=== PATIENT | male | born 1970 | race Caucasian/White ===

== ENCOUNTER 2019-10-20 21:17 | Emergency (ER) | payer OTHER ==
[~2019-10-20] VITALS: Ht 185.4 cm; Wt 98.9 kg
[~2019-10-20 21:17] MED LIST: ALBU90OI INH; AMOX500 PO; Ciprodex Otic7.5 ML LEFTEAR; Cleocin HCl300 MG PO; DIVA500EC PO; DOXY100 PO; Ery-Tab250 MG PO; HYDACE5 PO; MARIJUANA CARD; NAPR500; NAPR500 PO; NAPR550 PO; PROCODE120 PO; Percocet 5-3251 EACH PO; RXHYDACE PO; TAMS.4ER PO; TRAM50 PO
[2019-10-20 21:52] LABS: BASOPHILS ABSOLUTE AUTO 0.05 K/mm3 (0.00-0.23); BASOPHILS PERCENT AUTO 0 % (0-2); EOSINOPHILS ABSOLUTE AUTO 0.03 K/mm3 (0.00-0.68); EOSINOPHILS PERCENT AUTO 0 % (0-6); Hematocrit 48.3 % (37.0-53.0); Hemoglobin 15.9 g/dL (13.5-17.5); IMMATURE GRAN ABSOLUTE AUTO 0.04 K/mm3 (0.00-0.10); IMMATURE GRAN PERCENT AUTO 0 % (0-1); LYMPHOCYTES ABSOLUTE AUTO 1.79 K/mm3 (0.84-5.20); LYMPHOCYTES PERCENT AUTO 14 % (21-46); MONOCYTES ABSOLUTE AUTO 1.34 K/mm3 (0.16-1.47); MONOCYTES PERCENT AUTO 10 % (4-13); Mean Corpuscular HGB 29.2 pg (26.0-34.0); Mean Corpuscular HGB Conc 32.9 g/dL (31.5-36.5); Mean Corpuscular Volume 89 fL (80-100); Mean Platelet Volume 11.7 fL (9.1-12.4); NEUTROPHILS ABSOLUTE AUTO 9.67 K/mm3 (1.96-9.15); NEUTROPHILS PERCENT AUTO 75 % (41-73); Platelet Count 181 K/mm3 (150-400); RDW Coefficient Variation 13.9 % (11.7-14.2); Red Blood Cell Count 5.45 M/mm3 (4.30-5.90); White Blood Cell Count 12.92 K/mm3 (4.00-11.30)
[2019-10-20 22:14] LABS: Alanine Aminotransfer (ALT/SGP 31 U/L (12-78); Alk Phos 79 U/L (50-136); Anion Gap 5 mmol/L (6-16); Aspartate Aminotrans (AST/SGOT 28 U/L (12-37); Bilirubin, Total 0.7 mg/dL (0.1-1.0); Blood Urea Nitrogen 16 mg/dL (8-24); Bun/Creatinine Ratio 14.7 (12.0-20.0); CO2, Blood 25 mmol/L (21-32); Calcium, Blood 9.2 mg/dL (8.5-10.1); Chloride, Blood 110 mmol/L (98-108); Creatinine, Blood 1.09 mg/dL (0.60-1.20); Glomerular Filtration Rate >60 (60-); Glucose, Blood 119 mg/dL (70-99); Potassium, Blood 3.9 mmol/L (3.5-5.5); Sodium, Blood 140 mmol/L (136-145); Troponin I <0.015 ng/mL (0.000-0.040)
[2019-10-20 23:23] LABS: Source, Urine Clean Catch
[2019-10-20 23:32] LABS: Bilirubin, Urine Neg (Neg); Blood, Urine 3+ (Neg); Glucose Qualitative, Urine Neg (Neg); Ketones, Urine Neg (Neg); Leukocyte Esterase, Urine 1+ (Neg); Nitrite, Urine Neg (Neg); Protein, Urine 3+ (Neg); Urobilinogen, Urine 1+ (Normal)
[2019-10-20 23:34] LABS: Appearance, Urine Clear (Clear); Color, Urine Yellow (P-Yellow)
[2019-10-20 23:38] LABS: Amorphous Light (0-Heavy); Bacteria Few /hpf; Mucus Light (0-Heavy); Red Blood Cells, Urine 0-2 /hpf (0-2); Squamous Epithelial Cells Not Seen /hpf (Few)
[2019-10-21] MEDS ORDERED: Zofran4 MG PO (02:38)
== END 2019-10-21 02:55 | disposition home or self-care (01) ==
LOC: ER 21:17
PROVIDERS: Physician Assistant
DX: K62.89 Other specified diseases of anus and rectum (principal); R07.89 Other chest pain; R11.2 Nausea with vomiting, unspecified; F17.210 Nicotine dependence, cigarettes, uncomplicated
CPT/HCPCS: 36415; 71046; 74176; 80053; 81001; 83690; 84484; 85025; 87086; 93005; 93010; 99284-25

== ENCOUNTER 2019-12-15 14:34 | Emergency (ER) | payer OTHER ==
[~2019-12-15] VITALS: Ht 188 cm; Wt 99.8 kg
[~2019-12-15 14:34] MED LIST changes: +Zofran4 MG PO
[2019-12-15 15:10] LABS: BASOPHILS ABSOLUTE AUTO 0.05 K/mm3 (0.00-0.23); BASOPHILS PERCENT AUTO 1 % (0-2); EOSINOPHILS ABSOLUTE AUTO 0.01 K/mm3 (0.00-0.68); EOSINOPHILS PERCENT AUTO 0 % (0-6); IMMATURE GRAN ABSOLUTE AUTO 0.02 K/mm3 (0.00-0.10); IMMATURE GRAN PERCENT AUTO 0 % (0-1); LYMPHOCYTES ABSOLUTE AUTO 2.19 K/mm3 (0.84-5.20); LYMPHOCYTES PERCENT AUTO 21 % (21-46); MONOCYTES ABSOLUTE AUTO 0.79 K/mm3 (0.16-1.47); MONOCYTES PERCENT AUTO 7 % (4-13); Mean Corpuscular HGB 29.4 pg (26.0-34.0); Mean Corpuscular HGB Conc 33.3 g/dL (31.5-36.5); Mean Corpuscular Volume 88 fL (80-100); Mean Platelet Volume 11.2 fL (9.1-12.4); NEUTROPHILS ABSOLUTE AUTO 7.61 K/mm3 (1.96-9.15); NEUTROPHILS PERCENT AUTO 71 % (41-73); Platelet Count 173 K/mm3 (150-400); RDW Standard Deviation 44.4 fL (35.1-46.3); Red Blood Cell Count 5.45 M/mm3 (4.30-5.90); White Blood Cell Count 10.67 K/mm3 (4.00-11.30)
[2019-12-15 15:33] LABS: Alanine Aminotransfer (ALT/SGP 39 U/L (12-78); Albumin, Blood 4.3 g/dL (3.4-5.0); Albumin/Globulin Ratio 1.1 (0.8-1.8); Alk Phos 71 U/L (50-136); Anion Gap 5 mmol/L (6-16); Aspartate Aminotrans (AST/SGOT 47 U/L (12-37); Bilirubin, Total 0.9 mg/dL (0.1-1.0); Blood Urea Nitrogen 17 mg/dL (8-24); Bun/Creatinine Ratio 17.4 (12.0-20.0); CO2, Blood 22 mmol/L (21-32); Calcium, Blood 9.1 mg/dL (8.5-10.1); Chloride, Blood 111 mmol/L (98-108); Creatinine, Blood 0.98 mg/dL (0.60-1.20); Globulin, Blood 3.8 g/dL (2.2-4.0); Glomerular Filtration Rate >60 (60-); Glucose, Blood 109 mg/dL (70-99); Potassium, Blood 3.7 mmol/L (3.5-5.5); Sodium, Blood 138 mmol/L (136-145); Total Protein, Blood 8.1 g/dL (6.4-8.2)
== END 2019-12-15 16:05 | disposition home or self-care (01) ==
LOC: ER 14:34
PROVIDERS: Physician Assistant
DX: R10.9 Unspecified abdominal pain (principal); G89.29 Other chronic pain; F17.210 Nicotine dependence, cigarettes, uncomplicated
CPT/HCPCS: 36415; 80053; 83690; 85025; 99284

== ENCOUNTER → 2023-09-17 | Outpatient (CLI) | payer OTHER ==
[~2023-09-17] MED LIST changes: +ADVIL200 MG PO; +MELO7.5 PO; +OMEP20ER PO
== END ==
LOC: LAB SHORT 14:50
DX: H92.12 Otorrhea, left ear (principal)
CPT/HCPCS: 87070; 87205

== ENCOUNTER 2023-09-19 17:33 | Inpatient (IN) | payer OTHER ==
[~2023-09-19] VITALS: Ht 157.5 cm; Wt 100.1 kg
[2023-09-19 18:35] LABS: Mean Corpuscular HGB 39.7 pg (26.0-34.0); Mean Corpuscular HGB Conc 33.3 g/dL (31.5-36.5); Mean Corpuscular Volume 119 fL (80-100); Mean Platelet Volume 10.2 fL (9.1-12.4); RDW Coefficient Variation 18.4 % (11.7-14.2); RDW Standard Deviation 82.2 fL (35.1-46.3); Red Blood Cell Count 1.21 M/mm3 (4.30-5.90); White Blood Cell Count 1.89 K/mm3 (4.00-11.30)
[2023-09-19 18:37] LABS: Hematocrit 14.4 % (37.0-53.0); Hemoglobin 4.8 g/dL (13.5-17.5); Platelet Count 27 K/mm3 (150-400)
[2023-09-19 18:46] LABS: Percent Saturation 47.5 % (20.0-50.0)
[2023-09-19 19:08] LABS: BASOPHILS PERCENT MAN 0 % (0-2); EOSINOPHILS PERCENT MAN 0 % (0-6); LYMPHOCYTES % ATYPICAL MANUAL 3 % (0-0); LYMPHOCYTES ABSOLUTE MAN 1.73 K/mm3 (0.84-5.20); LYMPHOCYTES PERCENT MAN 89 % (21-46); MONOCYTES ABSOLUTE MAN 0.07 K/mm3 (0.16-1.47); MONOCYTES PERCENT MAN 4 % (4-13); NEUTROPHILS ABSOLUTE MAN 0.07 K/mm3 (1.96-9.15); SEG NEUTROPHILS PERCENT MAN 4 % (41-73); TOTAL CELLS COUNTED 100
[2023-09-19 19:44] LABS: IMMATURE RETIC FRACTION 16.4 % (2.3-16.0); RETIC HGB EQUIVALENT 41.4 pg (28.20-36.60); RETICULOCYTE ABSOLUTE 0.0378 M/mm3 (0.0200-0.1100); RETICULOCYTE COUNT PERCENT 3.12 % (0.50-2.50)
[2023-09-19 20:10] LABS: International Normalized Ratio 1.17; Prothrombin Time Results 12.2 Sec (9.7-11.5)
[2023-09-19 21:17] VITALS: BP 119/71
[2023-09-19 22:21] VITALS: BP 132/81
[2023-09-19 23:03] VITALS: BP 118/69
[2023-09-19 23:05] VITALS: BP 118/69
[2023-09-20] VITALS (18 sets, daily range): BP systolic 110–137; BP diastolic 7–86
--- NOTE | 2023-09-20 04:23 | NUR ---
SHIFT SUMMARY DELMA ARRIVED FROM THE ED AROUND 2114. HE WAS ALERT AND FULLY ORIENTED, AND ABLE TO XFER INDEPENDENTLY. PT ARRIVED ON 2L VIA NC, AND WAS TRANSFUSING UNIT 1 OF 2 RBCS. PT TOLERATED TRANSFUSIONS, BUT HAS HAD A FLUCTUATING LOW GRADE FEVER SINCE ARRIVAL TO ED. DR BUCIO CONTACTED ABOUT INCREASING TEMPERATURE DURING ADMINISTRATION OF UNIT 2. BENADRYL AND TYLENOL ORDERED AND ADMINISTERED, UNIT COMPLETED WITHOUT FURTHER ISSUE. PT ADMIT COMPLETE, HE IS HERE ORIGINALLY FOR A SWOLLEN EYE AFTER PICKING AT "A PIMPLE" ABOVE HIS EYEBROW. PT DISCOVERED TO HAVE PANCYTOPENIA. PT RESTING IN BED AT THIS TIME WITH CALL LIGHT IN REACH, AND SON IN ROOM.
[2023-09-20 04:43] LABS: BASOPHILS PERCENT AUTO 0 % (0-2); EOSINOPHILS PERCENT AUTO 0 % (0-6); Mean Corpuscular HGB 36.7 pg (26.0-34.0); Mean Corpuscular HGB Conc 33.5 g/dL (31.5-36.5); Mean Platelet Volume 13.1 fL (9.1-12.4); RDW Coefficient Variation 25.2 % (11.7-14.2); RDW Standard Deviation 93.3 fL (35.1-46.3); White Blood Cell Count 1.43 K/mm3 (4.00-11.30)
[2023-09-20 04:50] LABS: IMMATURE GRAN PERCENT AUTO 0 % (0-1); LYMPHOCYTES ABSOLUTE AUTO 1.11 K/mm3 (0.84-5.20); LYMPHOCYTES PERCENT AUTO 78 % (21-46); MONOCYTES ABSOLUTE AUTO 0.22 K/mm3 (0.16-1.47); MONOCYTES PERCENT AUTO 15 % (4-13); Mean Corpuscular Volume 109 fL (80-100); NEUTROPHILS PERCENT AUTO 7 % (41-73)
[2023-09-20 04:52] LABS: Hematocrit 16.4 % (37.0-53.0); Hemoglobin 5.5 g/dL (13.5-17.5); Platelet Count 19 K/mm3 (150-400)
[2023-09-20 05:06] LABS: Albumin/Globulin Ratio 0.9 (0.8-1.8); Bilirubin, Total 1.1 mg/dL (0.1-1.0); Bun/Creatinine Ratio 17.9 (12.0-20.0); Calcium, Blood 8.1 mg/dL (8.5-10.1); Creatinine, Blood 1.06 mg/dL (0.60-1.20); Globulin, Blood 3.2 g/dL (2.2-4.0); Total Protein, Blood 6.2 g/dL (6.4-8.2)
[2023-09-20 09:44] LABS: U Amphetamine Screen Not Detected; U Barbituate Screen Not Detected; U Benzodiazapine Screen Not Detected; U Buprenorphine Screen Not Detected; U Cannabinoids Screen DETECTED; U Cocaine Screen Not Detected; U Methadone Screen Not Detected; U Methamphetamine Screen Not Detected; U Opiates Screen Not Detected; U Oxycodone Screen Not Detected; U Phencyclidine Screen Not Detected
[2023-09-20 16:36] LABS: Hematocrit 18.7 % (37.0-53.0); Hemoglobin 6.3 g/dL (13.5-17.5)
--- NOTE | 2023-09-20 18:03 | NUR ---
SHIFT SUMMARY PT A&OX4, VSS, AMB IND, TOLERATING PO, VOIDING, AND DENIED PAIN. HGB NOW 6.3 AFTER BLOOD TRANSFUSION THIS AM. PER , ORDER FOR ADDITIONAL RBC UNIT TO BE ADMINISTERED. CALL LIGHT WITHIN REACH AND PT ABLE TO MAKE NEEDS KNOWN.
[2023-09-21] VITALS (9 sets, daily range): BP systolic 103–140; BP diastolic 68–82
[2023-09-21 02:06] LABS: Bun/Creatinine Ratio 17.1 (12.0-20.0); Calcium, Blood 8.1 mg/dL (8.5-10.1); Creatinine, Blood 0.99 mg/dL (0.60-1.20); Potassium, Blood 3.7 mmol/L (3.5-5.5)
[2023-09-21 02:19] LABS: BASOPHILS PERCENT AUTO 0 % (0-2); EOSINOPHILS PERCENT AUTO 0 % (0-6); Hematocrit 19.8 % (37.0-53.0); Hemoglobin 6.9 g/dL (13.5-17.5); Mean Corpuscular HGB 36.1 pg (26.0-34.0); Mean Corpuscular HGB Conc 34.8 g/dL (31.5-36.5); Mean Platelet Volume 10.8 fL (9.1-12.4); RDW Coefficient Variation 24.2 % (11.7-14.2); RDW Standard Deviation 86.2 fL (35.1-46.3); Red Blood Cell Count 1.91 M/mm3 (4.30-5.90); White Blood Cell Count 1.53 K/mm3 (4.00-11.30)
[2023-09-21 02:27] LABS: Mean Corpuscular Volume 104 fL (80-100)
[2023-09-21 02:28] LABS: IMMATURE GRAN PERCENT AUTO 0 % (0-1); LYMPHOCYTES ABSOLUTE AUTO 1.23 K/mm3 (0.84-5.20); LYMPHOCYTES PERCENT AUTO 80 % (21-46); MONOCYTES ABSOLUTE AUTO 0.19 K/mm3 (0.16-1.47); MONOCYTES PERCENT AUTO 12 % (4-13); NEUTROPHILS ABSOLUTE AUTO 0.11 K/mm3 (1.96-9.15); NEUTROPHILS PERCENT AUTO 7 % (41-73); Platelet Count 19 K/mm3 (150-400)
--- NOTE | 2023-09-21 04:29 | NUR ---
SHIFT SUMMARY DELMA WAS ALERT AND FULLY ORIENTED TONIGHT ON ASSESMENT. HGB STILL LOW, ONE UNIT TRANSFUSED AT START OF SHIFT SUBSEQUENT LAB DRAW 6.9, PLT STILL 19. HOSPITALIST NOTIFIED OF CRITICAL PLT VALUE AND LOW HGB, SECOND UNIT TONIGHT INFUSING NOW. NO COMPLICATIONS YET, WILL CONTINUE TO MONITOR TRANSFUSION. NO ACUTE EVENTS TONIGHT NO NOTED CHANGES TO CONDITION. PT RESTING IN BED AT LOW POSITION WITH CALL LIGHT IN REACH AND FAMILY AT BEDSIDE. IV TO R WRIST D/C D/T INFILTRATION.
[2023-09-21 10:46] LABS: Hematocrit 22.6 % (37.0-53.0); Hemoglobin 7.8 g/dL (13.5-17.5)
--- NOTE | 2023-09-21 13:38 | NUR ---
STATED ALLERGY PT STATED HE DEVELOPED A RASH ALL OVER HIS BODY FROM CEPHALEXEN. CARE ON GOING.
--- NOTE | 2023-09-21 15:45 | NUR ---
NOTE PT ALERT. WALKING FREQUENLTY AROUND THE FLOOR WITH MASK ON. HE IS BASELINE, A VERY ACTIVE MAN. LEFT FA IV INFILTRATED. NEW IV STARTED RIGH AC. TOLERATING ANTIBIOTIC WELL. NO RASH NOTED. FAMILY AT BEDSIDE. PT HAS CHRONIC PAIN BUT HAS DECLINED ORAL PAIN MEDICATIONS HE PREFERS TO WALK. RA. LARGE AMOUNT OF FAMILY IN AND OUT. THEY ARE COOPERATIVE WITH NEUTROPENIC PRECAUTIONS. PT HAS AN EXCELLENT APPETITE. CARE ONGOING.
[2023-09-21 18:40] LABS: Bilirubin, Direct 0.3 mg/dL (0.0-0.3); Bilirubin, Indirect 0.7 mg/dL (0.1-0.7)
--- NOTE | 2023-09-21 19:15 | NUR ---
RECEIVED REPORT FROM SHANNA RN. PT SITTING ON SIDE OF BED ROCKING WHICH APPEARS TO BE PT'S BASELINE. FAMILY AT BEDSIDE. NO NEEDS AT THIS TIME. WILL CONTINUE TO PROVIDE CARE T/O SHIFT. CALL LT IN REACH.
--- NOTE | 2023-09-21 22:30 | NUR ---
PT STATES HE'S GOING TO TAKE A WALK AROUND THE FLOOR. NO NEEDS AT THIS TIME. CALL LT IN REACH.
--- NOTE | 2023-09-22 00:20 | NUR ---
PT UP IN ROOM WALKING AROUND. ABX INFUSING. CALL LT IN REACH.
--- NOTE | 2023-09-22 01:00 | NUR ---
SALINE LOCKED PT. PT RESTING QUIETLY. LIGHTS TURNED OFF PER PT REQUEST. NO OTHER NEEDS. CALL LT IN REACH.
--- NOTE | 2023-09-22 04:16 | NUR ---
PT RESTING QUIETLY. CALL LT IN REACH.
[2023-09-22 04:20] VITALS: BP 138/79
[2023-09-22 07:09] LABS: HAPTOGLOBIN 111 mg/dL (30-200)
[2023-09-22 07:33] LABS: Hematocrit 23.8 % (37.0-53.0); Mean Corpuscular HGB 34.6 pg (26.0-34.0); Mean Corpuscular HGB Conc 33.6 g/dL (31.5-36.5); Mean Corpuscular Volume 103 fL (80-100); RDW Coefficient Variation 22.6 % (11.7-14.2); RDW Standard Deviation 79.7 fL (35.1-46.3); Red Blood Cell Count 2.31 M/mm3 (4.30-5.90); White Blood Cell Count 1.44 K/mm3 (4.00-11.30)
[2023-09-22 07:37] LABS: Platelet Count 20 K/mm3 (150-400)
[2023-09-22 07:53] LABS: Albumin, Blood 3.1 g/dL (3.4-5.0); Albumin/Globulin Ratio 0.8 (0.8-1.8); Bilirubin, Total 0.9 mg/dL (0.1-1.0); Bun/Creatinine Ratio 17.8 (12.0-20.0); Calcium, Blood 8.5 mg/dL (8.5-10.1); Creatinine, Blood 0.95 mg/dL (0.60-1.20); Globulin, Blood 3.8 g/dL (2.2-4.0); Potassium, Blood 4.1 mmol/L (3.5-5.5); Total Protein, Blood 6.9 g/dL (6.4-8.2)
[2023-09-22 08:18] LABS: BAND PERCENT MAN 2 % (0-8); BASOPHILS PERCENT MAN 0 % (0-2); EOSINOPHILS PERCENT MAN 0 % (0-6); LYMPHOCYTES % ATYPICAL MANUAL 2 % (0-0); LYMPHOCYTES ABSOLUTE MAN 1.23 K/mm3 (0.84-5.20); LYMPHOCYTES PERCENT MAN 84 % (21-46); METAMYELOCYTE ABSOLUTE MAN 0.02 K/mm3 (0.00-0.00); METAMYELOCYTE PERCENT MAN 2 % (0-0); MONOCYTES ABSOLUTE MAN 0.08 K/mm3 (0.16-1.47); MONOCYTES PERCENT MAN 6 % (4-13); NEUTROPHILS ABSOLUTE MAN 0.08 K/mm3 (1.96-9.15); SEG NEUTROPHILS PERCENT MAN 4 % (41-73); TOTAL CELLS COUNTED 50
--- NOTE | 2023-09-22 09:12 | NUR ---
BONE MARROW TAP DR BRANNON AT BEDSIDE. PT CONSENTED. PT MEDCIATED WITH ATIVAN 2MG X1 IV. JOSE RN WAS AT BEDSIDE FOR PROCEDURAL ASSIST AND MEDCIATIONS. PATHOLOGY FROM LAB HERE FOR SAMPLES. PT AWAKE AND TALKING THROUGH OUT. BAND AIDE PLACED OVER RIGHT HIP SAMPLE SITE. PT HEMATOMA OR BLEEDING NOTED. PT STATED THAT IT WASN'T BAD HE THOUGHT. PT ABLE TO GET UP AND EAT IMMEDIATELY AFTER DRESSING PLACED. VSS. CARE ONGOING.
[2023-09-22 10:22] LABS: HIV 1,2 COMBO ANTIGEN/ANTIBODY Negative (Negative)
[2023-09-22 17:40] LABS: ANTI-NUCLEAR AB ANA,IGG ELISA None Detected (None Detected)
--- NOTE | 2023-09-22 17:43 | NUR ---
NOTE PT ALERT, COOPERATIVE. S/P BONE MARROW TAP. RIGHT HIP SITE CD&I. UP AD RITA. DENIED DISCOMFORT AT SITE. POT AMBULATING OUTSIDE FOR SOME AIR. PT DEMANDED THAT THIS NURSE CALL DOWN TO THE [place] AND TELL THEM THAT PT CAN EAT DOWNSTAIRS IN THE [place]. THIS NURSE CALLED AND LEFT A MESSAGE. RETURN CALL FROM [employer] RECIVED. THEY CONFIRMED THAT THEY ARE UNABLE TO SERVE ACTIVE PATIENTS. RELAYED THE MESSAGE TO PT . SHE BECAME BALLIGERENT. TOLD PT THAT HE IS MORE THAN WELCOME TO KEEP THEM COMPANY IN THE [place] BUT STAFF WILL NOT SERVE HIM. HE WAS OK. WAS ANGRY. CARE ONGOING.
[2023-09-22 20:10] VITALS: BP 142/87
--- NOTE | 2023-09-23 01:07 | NUR ---
SHIFT SUMMARY PT A&O X 4, UP AND AMBULATING IN ROOM WITHOUT ASSISTANCE. PT HAD SON AND HIS GIRLFRIEND AT BEDSIDE MOST OF THE NIGHT. THEY FREQUENTLY LEFT THE ROOM TOGETHER AND WOULD RETURN TOGETHER AFTER 30-45 MINUTES OUTSIDE. PT REPORTED CHRONIC PAIN IN BACK WELL NEW PAIN TO R HIP AREA WHERE BONE MARROW TAP WAS DONE, MEDICATED PER EMAR WITH OXY WITH GOOD RELIEF. PT ORBITAL AREA REMAINED UNCHANGED THROUGH THE SHIFT. NO ACUTE CHANGES THIS SHIFT. PT ROOM HAS FOUL STRONG ODOR OF AMMONIA/CAT URINE BUT PT DOES NOT NOTICE IT. 09/23/23 KARSON LEON RN
[2023-09-23 04:22] VITALS: BP 115/72
[2023-09-23 06:59] LABS: BASOPHILS PERCENT AUTO 0 % (0-2); EOSINOPHILS PERCENT AUTO 0 % (0-6); Hemoglobin 8.4 g/dL (13.5-17.5); Mean Corpuscular HGB 35.6 pg (26.0-34.0); Mean Corpuscular Volume 102 fL (80-100); Mean Platelet Volume 11.3 fL (9.1-12.4); RDW Coefficient Variation 21.1 % (11.7-14.2); RDW Standard Deviation 75.7 fL (35.1-46.3); Red Blood Cell Count 2.36 M/mm3 (4.30-5.90); White Blood Cell Count 1.88 K/mm3 (4.00-11.30)
[2023-09-23 07:17] LABS: IMMATURE GRAN PERCENT AUTO 0 % (0-1); LYMPHOCYTES ABSOLUTE AUTO 1.59 K/mm3 (0.84-5.20); LYMPHOCYTES PERCENT AUTO 85 % (21-46); MONOCYTES ABSOLUTE AUTO 0.18 K/mm3 (0.16-1.47); MONOCYTES PERCENT AUTO 10 % (4-13); NEUTROPHILS ABSOLUTE AUTO 0.11 K/mm3 (1.96-9.15); NEUTROPHILS PERCENT AUTO 6 % (41-73); Platelet Count 23 K/mm3 (150-400)
[2023-09-23 08:05] VITALS: BP 137/84
--- NOTE | 2023-09-23 18:02 | NUR ---
SUMMARY- PT A/O X4, INDEPENDANT IN ROOM. CONT TO RECEIVE IV ABX FOR PERIORBITAL CELLULITIS. AREA IS LIGHT PURPLE, NO HEAT. DOES NOT COMPLAIN OF ANY PAIN. TOLERATING FOOD ANF FLUIDS. FREQ TAKES WALKS OUT OF ROOM. FAMILY STAYING IN THE ROOM, RN ASKED ALL ADULT CHILDREN GO HOME FOR THE [place] THAT IS OUR VISITOR POLICY. WILL REPORT TO SALVATORE RN
[2023-09-23 20:22] VITALS: BP 140/85
[2023-09-24 03:03] VITALS: BP 143/91
--- NOTE | 2023-09-24 04:50 | NUR ---
PT IS ALERT AND ORIENTED. PT IS CALM AND COOPERATIVE WITH CARE. PT IS INDEPENDENT IN THE ROOM. PT CALLS APPROPRIATELY. FAMILY IN THE ROOM OVERNIGHT. PT REPORTS PAIN ON ONE OCCASION, GAVE PRN TYLENOL AND OXYCODONE. PT DENIES NAUSEA, VOMITING, AND SOB. NO ACUTE CHANGES OR COMPLICATIONS. POSSIBLE DC TODAY. BED IN LOW POSITION, CALL LIGHT WITHIN REACH. WILL REPORT TO DAY NURSE.
[2023-09-24 06:09] LABS: Hematocrit 24.5 % (37.0-53.0); Hemoglobin 8.3 g/dL (13.5-17.5); Mean Corpuscular HGB 34.9 pg (26.0-34.0); Mean Corpuscular HGB Conc 33.9 g/dL (31.5-36.5); Mean Corpuscular Volume 103 fL (80-100); Mean Platelet Volume 11.6 fL (9.1-12.4); RDW Standard Deviation 72.8 fL (35.1-46.3); Red Blood Cell Count 2.38 M/mm3 (4.30-5.90); White Blood Cell Count 1.76 K/mm3 (4.00-11.30)
[2023-09-24 06:13] LABS: Platelet Count 23 K/mm3 (150-400)
[2023-09-24 06:32] LABS: BASOPHILS PERCENT MAN 0 % (0-2); EOSINOPHILS PERCENT MAN 0 % (0-6); LYMPHOCYTES ABSOLUTE MAN 1.65 K/mm3 (0.84-5.20); LYMPHOCYTES PERCENT MAN 94 % (21-46); MONOCYTES ABSOLUTE MAN 0.07 K/mm3 (0.16-1.47); MONOCYTES PERCENT MAN 4 % (4-13); NEUTROPHILS ABSOLUTE MAN 0.03 K/mm3 (1.96-9.15); SEG NEUTROPHILS PERCENT MAN 2 % (41-73); TOTAL CELLS COUNTED 50
[2023-09-24 07:44] VITALS: BP 136/66
--- NOTE | 2023-09-24 13:42 | NUR ---
PATIENT AMBULATED OUT OF ROOM WITH HIS SON, WEARING MASK, WAS GONE FOR ABOUT 25 MINUTES. THEY RETURNED WITH BAGS OF POTATO CHIPS AND SODA. WHEN HE CAME BACK, THIS AUTHOR EDUCATED HIM ABOUT NOT LEAVING THE UNIT, LET ALONE LEAVING THE PROPERTY TO GET SNACKS. HE VERBALIZED THAT HE HAD NOT BEEN TOLD THAT PREVIOUSLY. EXPLAINED TO HIM THAT HE IS AN INPATIENT AND HE IS OUR RESPONSIBILITY UNTIL HE IS DISCHARGED. HE VERBALIZED UNDERSTANDING OF THIS EDUCATION.
[2023-09-24 15:38] VITALS: BP 124/96
--- NOTE | 2023-09-24 16:48 | NUR ---
SHIFT SUMMARY: NO ACUTE EVENTS. C/O 6/10 CHRONIC BACK PAIN; TYLENOL GIVEN OXYCODONE IS ONLY ORDERED ONCE PER DAY AND HE PREFERS TO TAKE IT BEFORE BED. HEATING PAD SET UP. R EYE CELLULITIS APPEARS RESOLVED. SPOKE TO WHO STATED THAT PT WAS DIAGNOSED WITH AN EAR INFECTION AND IS SUPPOSED TO HAVE SURGERY IN [place]TH[place] (NOT SCHEDULED YET). SHE MAY BRING IN HIS HOME RX FOR EAR DROPS TOMORROW. AMBULATING INDEPENDENTLY, WAS EDUCATED NOT TO LEAVE THE UNIT BUT CONTINUES TO DO SO. ON ROOM AIR.
--- NOTE | 2023-09-24 18:35 | NUR ---
DR. BRANNON SAW PATIENT. DUE TO NEW DIAGNOSIS OF AML, HE WOULD LIKE PATIENT TRANSFERRED TO [facility] FOR INDUCTION CHEMOTHERAPY.
[2023-09-24 20:14] VITALS: BP 123/75
[2023-09-25 03:11] VITALS: BP 118/70
--- NOTE | 2023-09-25 05:38 | NUR ---
SHIFT SUMMARY NOC PT A/O X 4. PLEASANT AND COOPERATIVE WITH CARE. ON NEUTROPENIC PRECAUTIONS WITH NEWLY DX OF LEUKEMIA. AT AROUND 0315 KEYSEATER OPERATOR NOTIFIED RN THAT PT L EYE WAS BADLY SWOLLEN. L EYE COMPLETELY SHUT AND PT HAS MILD C/O OF PAIN, BUT MOSTLY IRRITATION. PT HAD CELLULITIS IN R EYE LAST WEEK UPON ADMIT AND L EYE LOOKS IDENTICAL TO WHAT THAT LOOKED LIKE. HOSPITALIST NOTIFIED AND INSTRUCTIONS GIVEN TO PASS ALONG TO DAY RN TO PASS ALONG TO ROUNDING MD. ICE PACK AND TYENOL GIVEN. PT IS WAITING ON BED TO OPEN UP AT [facility] FOR [facility] TRANSFER TO BEGIN INDUCTION CHEMOTHERAPY FOR NEW DX. PT IS CURRENTLY RESTING WITH BED IN LOWEST POSITION, AND CALL LIGHT WITHIN REACH.
[2023-09-25 05:40] LABS: BASOPHILS PERCENT AUTO 0 % (0-2); EOSINOPHILS PERCENT AUTO 0 % (0-6); Hematocrit 23.5 % (37.0-53.0); Hemoglobin 8.2 g/dL (13.5-17.5); Mean Corpuscular HGB 35.3 pg (26.0-34.0); Mean Corpuscular HGB Conc 34.9 g/dL (31.5-36.5); Mean Corpuscular Volume 101 fL (80-100); Mean Platelet Volume 11.2 fL (9.1-12.4); RDW Coefficient Variation 19.4 % (11.7-14.2); RDW Standard Deviation 69.2 fL (35.1-46.3); Red Blood Cell Count 2.32 M/mm3 (4.30-5.90); White Blood Cell Count 1.26 K/mm3 (4.00-11.30)
[2023-09-25 05:48] LABS: IMMATURE GRAN PERCENT AUTO 0 % (0-1); LYMPHOCYTES ABSOLUTE AUTO 1.02 K/mm3 (0.84-5.20); LYMPHOCYTES PERCENT AUTO 81 % (21-46); MONOCYTES ABSOLUTE AUTO 0.13 K/mm3 (0.16-1.47); MONOCYTES PERCENT AUTO 10 % (4-13); NEUTROPHILS ABSOLUTE AUTO 0.11 K/mm3 (1.96-9.15); NEUTROPHILS PERCENT AUTO 9 % (41-73)
[2023-09-25 05:49] LABS: Platelet Count 25 K/mm3 (150-400)
[2023-09-25 07:48] VITALS: BP 113/82
--- NOTE | 2023-09-25 08:04 | NUR ---
CALL TO [facility], THEY ARE ON [place] AND DO NOT EXPECT BEDS FOR UP TO A WEEK
[2023-09-25 15:02] VITALS: BP 107/83
--- NOTE | 2023-09-25 19:44 | NUR ---
SHIFT SUMMARY: NO ACUTE EVENTS. L EYE REMAINS SWOLLEN AND RED. LESIONS ON POSTERIOR NECK ARE UNCHANGED. C/O CHRONIC BACK PAIN, HEATING PAD IS HELPING. AMBULATING INDEPENDENTLY, STILL GOING OFF UNIT PERIODICALLY. APPETITE IS GOOD. SPENT TIME THIS EVENING EDUCATING HIM ABOUT WHAT TO EXPECT WHEN RECEIVING CHEMO (CENTRAL LINE PLACEMENT, POSSIBLE SIDE EFFECTS DEPENDING ON REGIMEN). DID NOT BRING EAR DROPS FROM HOME.
--- NOTE | 2023-09-26 01:43 | NUR ---
PATIENT COMPLAINT OF INSOMNIA DESPITE TRAZODONE GIVEN PER EMAR AT BEDTIME. HOSPITALIST CONTACTED. DR. KING CONTACTED FOR PATIENTS COMPLAINT. DR. KING ORDERED FOR 0.5MG ATIVAN PO X1.
[2023-09-26 02:50] VITALS: BP 122/80
--- NOTE | 2023-09-26 04:12 | NUR ---
SHIFT SUMMARY. PATIENT IS ALERT AND ORIENTED X4. PATIENT INDEPENDENT IN ROOM. PATIENT IS ABLE TO MAKE HIS NEEDS KNOWN AND CALLS APPROPRIATELY. PATIENT C/O OF INSOMNIA; SEE PREVIOUS NOTES. PATIENT IS PLEASANT AND COOPERATIVE WITH CARE. PATIENT PAIN ASSESSED AND MEDICATED PER EMAR. PATIENT IS AWAITING FOR AN OPEN BED AT [facility] FOR CHEMOTHERAPY. BED IS LOCKED IN THE LOWEST POSITION WITH CALL LIGHT IN REACH. NO S/S OF DISTRESS NOTED AT THIS TIME. CARE IS ONGOING.
[2023-09-26 06:02] LABS: BASOPHILS PERCENT AUTO 0 % (0-2); EOSINOPHILS PERCENT AUTO 0 % (0-6); Hematocrit 22.5 % (37.0-53.0); Hemoglobin 7.6 g/dL (13.5-17.5); Mean Corpuscular HGB 34.2 pg (26.0-34.0); Mean Corpuscular HGB Conc 33.8 g/dL (31.5-36.5); Mean Corpuscular Volume 101 fL (80-100); RDW Coefficient Variation 19.2 % (11.7-14.2); RDW Standard Deviation 68.4 fL (35.1-46.3); Red Blood Cell Count 2.22 M/mm3 (4.30-5.90)
[2023-09-26 06:13] LABS: IMMATURE GRAN PERCENT AUTO 0 % (0-1); LYMPHOCYTES PERCENT AUTO 87 % (21-46); MONOCYTES ABSOLUTE AUTO 0.15 K/mm3 (0.16-1.47); MONOCYTES PERCENT AUTO 10 % (4-13); Mean Platelet Volume 12.2 fL (9.1-12.4); NEUTROPHILS ABSOLUTE AUTO 0.05 K/mm3 (1.96-9.15); NEUTROPHILS PERCENT AUTO 3 % (41-73); Platelet Count 23 K/mm3 (150-400)
[2023-09-26 06:20] LABS: Calcium, Blood 8.7 mg/dL (8.5-10.1); Creatinine, Blood 0.9 mg/dL (0.60-1.20)
[2023-09-26 07:34] VITALS: BP 126/62
--- NOTE | 2023-09-26 09:00 | NUR ---
PT PLEASANT COOP A/O X3. DENIES PAIN AT THIS TIME. H/R REG, NO MURMUR NOTED. NO TELE. LUNGS CLEAR, RESP EASY, UNLABORED. ON R.A. BT X4 LAST BM YEST PER PT. VOIDS INDEPENDANT TO BATHROOM. PENDING TRANSPORT TO [facility] FOR CHEMO. NO ROOMS YET. BED IN LOW POSITION, CALL LITE IN REACH, CALLS APROP
[2023-09-26 16:39] VITALS: BP 135/82
--- NOTE | 2023-09-26 18:37 | NUR ---
PT PLEASAANT TODAY. MILD PAIN THIS AM, MED PER EMAR WITH TYLENOL. HAS BEEN AMBULATORY IN ROOM TODAY. NO NEW CONCERNS NOTED. STILL PIEINDING BED AT [facility]. BED IN LOW POSITIOIN, CALL LITE IN REACH, CALLS APPROP
[2023-09-26 20:32] VITALS: BP 124/79
--- NOTE | 2023-09-27 04:44 | NUR ---
SHIFT SUMMARY. PATIENT IS ALERT AND ORIENTED X4. PATIENT IS INDPENDENT AND WILL WALK TO VENDING MACHINES ON FIRST FLOOR. PATIENT CALLS APPROPRIATELY AND IS ABLE TO MAKE HIS NEEDS KNOWN. PATIENT ABLE TO SLEEP FOR 3 HOURS TONIGHT; UP AT 0300 WITH DIFFICULTY SLEEPING. PATIENTS BED IS LOCKED IN THE LOWEST POSITION WITH CALL LIGHT IN REACH. NO ACUTE EVENTS NOTED THIS SHIFT. NO S/S OF DISTRESS. CARE IS ONGOING.
[2023-09-27 04:59] VITALS: BP 130/77
[2023-09-27 05:24] LABS: BASOPHILS PERCENT AUTO 0 % (0-2); EOSINOPHILS PERCENT AUTO 0 % (0-6); Hematocrit 21.1 % (37.0-53.0); Hemoglobin 7.3 g/dL (13.5-17.5); Mean Corpuscular HGB 35.3 pg (26.0-34.0); Mean Corpuscular HGB Conc 34.6 g/dL (31.5-36.5); Mean Corpuscular Volume 102 fL (80-100); Mean Platelet Volume 11.7 fL (9.1-12.4); RDW Standard Deviation 68.7 fL (35.1-46.3); Red Blood Cell Count 2.07 M/mm3 (4.30-5.90); White Blood Cell Count 1.72 K/mm3 (4.00-11.30)
[2023-09-27 05:47] LABS: Albumin/Globulin Ratio 0.8 (0.8-1.8); Bilirubin, Total 0.5 mg/dL (0.1-1.0); Bun/Creatinine Ratio 20.4 (12.0-20.0); Calcium, Blood 8.5 mg/dL (8.5-10.1); Creatinine, Blood 0.88 mg/dL (0.60-1.20); Globulin, Blood 3.9 g/dL (2.2-4.0); Potassium, Blood 3.8 mmol/L (3.5-5.5); Total Protein, Blood 6.9 g/dL (6.4-8.2)
[2023-09-27 05:48] LABS: IMMATURE GRAN PERCENT AUTO 0 % (0-1); LYMPHOCYTES ABSOLUTE AUTO 1.55 K/mm3 (0.84-5.20); LYMPHOCYTES PERCENT AUTO 90 % (21-46); MONOCYTES ABSOLUTE AUTO 0.12 K/mm3 (0.16-1.47); MONOCYTES PERCENT AUTO 7 % (4-13); NEUTROPHILS ABSOLUTE AUTO 0.05 K/mm3 (1.96-9.15); NEUTROPHILS PERCENT AUTO 3 % (41-73); Platelet Count 26 K/mm3 (150-400)
[2023-09-27 07:20] VITALS: BP 125/81
[2023-09-27] MEDS ORDERED: LEVFLO500 PO (11:42)
[2023-09-27] MEDS ORDERED: LACT PO (11:42)
[2023-09-27] MEDS ORDERED: TRAZ50 PO (11:42)
--- NOTE | 2023-09-27 13:03 | NUR ---
DC-1300 PT DC IN STABLE CONDITION. PT LEFT WITH FOR DC WITH ALL BELONGINGS. ALL DC PAPERWORK AND INSTRUCTIONS DISCUSSED WITH PT. PT VERBALIZED UNDERSTANDING.
== END 2023-09-27 13:03 | disposition home or self-care (01) | DRG 809 ==
LOC: ER 17:33 → MEDS 20:40
PROVIDERS: Family Medicine; Hospitalist; Physician Assistant; Student in an Organized Health Care Education/Training Program; ADMIT Internal Medicine
PROC: 30233N1 Transfusion of Nonautologous Red Blood Cells into Peripheral Vein, Percutaneous Approach (ICD-10-PCS; principal; 2023-09-19)
DX: D61.818 Other pancytopenia (principal); C92.00 Acute myeloblastic leukemia, not having achieved remission; J44.9 Chronic obstructive pulmonary disease, unspecified; G40.909 Epilepsy, unspecified, not intractable, without status epilepticus; M54.9 Dorsalgia, unspecified; H00.033 Abscess of eyelid right eye, unspecified eyelid; F12.90 Cannabis use, unspecified, uncomplicated; G89.29 Other chronic pain; D70.9 Neutropenia, unspecified; R50.81 Fever presenting with conditions classified elsewhere; Z87.891 Personal history of nicotine dependence; Z88.1 Allergy status to other antibiotic agents; Z79.51 Long term (current) use of inhaled steroids; Z79.899 Other long term (current) drug therapy
CPT/HCPCS: 36415; 36430; 70487; 71046; 80048; 80053; 82247; 82248; 82607; 82728; 82746; 83010; 83540; 83550; 83615; 85014; 85018; 85025; 85045; 85060; 85610; 85730; 86038; 86850; 86900; 86901; 86923; 87040; 87389; 88184; 88185; 88341; 88342; 93005; 93010; 94640; 94664; 94760; 99285-25; A9270; J2060; J2185; J7030; J7040; P9016; Q9967

== ENCOUNTER → 2023-09-19 | Outpatient (CLI) | payer OTHER ==
[2023-09-19 16:48] LABS: BASOPHILS PERCENT AUTO 0 % (0-2); EOSINOPHILS PERCENT AUTO 0 % (0-6); IMMATURE GRAN PERCENT AUTO 0 % (0-1); LYMPHOCYTES ABSOLUTE AUTO 1.29 K/mm3 (0.84-5.20); LYMPHOCYTES PERCENT AUTO 83 % (21-46); MONOCYTES ABSOLUTE AUTO 0.16 K/mm3 (0.16-1.47); MONOCYTES PERCENT AUTO 10 % (4-13); Mean Corpuscular HGB 40.2 pg (26.0-34.0); Mean Corpuscular HGB Conc 33.3 g/dL (31.5-36.5); Mean Corpuscular Volume 121 fL (80-100); Mean Platelet Volume 13.2 fL (9.1-12.4); NEUTROPHILS ABSOLUTE AUTO 0.11 K/mm3 (1.96-9.15); NEUTROPHILS PERCENT AUTO 7 % (41-73); RDW Coefficient Variation 18.6 % (11.7-14.2); RDW Standard Deviation 81.4 fL (35.1-46.3); Red Blood Cell Count 1.17 M/mm3 (4.30-5.90); White Blood Cell Count 1.56 K/mm3 (4.00-11.30)
[2023-09-19 16:59] LABS: Bun/Creatinine Ratio 14.3 (12.0-20.0); Calcium, Blood 8.6 mg/dL (8.5-10.1); Creatinine, Blood 1.26 mg/dL (0.60-1.20); Potassium, Blood 4.3 mmol/L (3.5-5.5)
[2023-09-19 17:05] LABS: Hematocrit 14.1 % (37.0-53.0); Platelet Count 33 K/mm3 (150-400)
[2023-09-19 17:06] LABS: Hemoglobin 4.7 g/dL (13.5-17.5)
== END | disposition home or self-care (01) ==
LOC: LAB 16:36 → LAB SHORT 16:36
PROVIDERS: Physician Assistant
DX: R50.9 Fever, unspecified (principal)
CPT/HCPCS: 80048; 85025